=== PATIENT | male | born 1950 | race Caucasian/White ===

== ENCOUNTER → 2023-05-13 | Outpatient (CLI) | payer OTHER | END | disposition home or self-care (01) | LOC: TOM 09:09 | PROVIDERS: ATTEND Urology | DX: N40.1 Benign prostatic hyperplasia with lower urinary tract symptoms (principal); R97.20 Elevated prostate specific antigen [PSA]; R31.0 Gross hematuria ==

== ENCOUNTER 2025-01-30 10:19 | Inpatient (IN) | payer OTHER ==
[~2025-01-30] VITALS: Ht 166.4 cm; Wt 83.5 kg
[2025-01-30] MEDS ORDERED: COZAAR25 MG PO (10:55)
[2025-01-30] MEDS ORDERED: FINASTERIDE5 MG PO (10:55)
[2025-02-05] MEDS ORDERED: BUPIVACAINE HCL 30 ML VIAL IJ ONE (11:30)
[2025-02-05] MEDS ORDERED: LIDOCAINE HCL 1%/EPINEPHRINE 20ML VIAL IJ ONE (11:30)
[2025-02-05] MEDS ORDERED: METRONIDAZOLE/SODIUM CHLORIDE 500 MG/100 ML PIGGYBACK IV SCH ×2 (11:45→17:00)
[2025-02-05] MEDS ORDERED: CEFTRIAXONE SODIUM 2,000 MG VIAL IV SCH (11:45)
[2025-02-05] MEDS ORDERED: DEXTROSE 50 % IN WATER 0.5 G/ML DISP.SYRIN IV PRN ×2 (13:00→19:15)
[2025-02-05] MEDS ORDERED: ONDANSETRON HCL 2 MG/ML VIAL IV PRN (13:00)
[2025-02-05] MEDS ORDERED: OxyCODONE HCL 5 MG TABLET (ROXICODONE) PO PRN (13:00)
[2025-02-05] MEDS ORDERED: HYOSCYAMINE SULFATE 0.125 MG TAB.SUBL SL SCH (13:00)
[2025-02-05] MEDS ORDERED: SUGAMMADEX SODIUM 200 MG/2 ML VIAL IV ONE (13:00)
[2025-02-05] MEDS ORDERED: 0.9 % SODIUM CHLORIDE 1,000 ML IV SCH (13:00)
[2025-02-05] MEDS ORDERED: MORPHINE SULFATE 4 MG/ML CARTRIDGE IV PRN (13:00)
[2025-02-05] MEDS ORDERED: ACETAMINOPHEN 500 MG GEL..CAP PO SCH (14:00)
[2025-02-05] MEDS ORDERED: MORPHINE SULFATE 2 MG/ML CARTRIDGE IV ONE (15:00)
[2025-02-05 16:25] LABS: HEMATOCRIT 37.6 % (39.0-48.0); HEMOGLOBIN 12.5 g/dL (13-16.00); MEAN CELL VOLUME 83.7 fL (80.0-100.00); MEAN CORPUSCULAR HEMOGLOBIN 27.8 pg (27.00-32.0); MEAN CORPUSCULAR HGB CONC 33.3 g/dl (32.0-36.0); PLATELET COUNT 234 K/uL (150-450)
[2025-02-05 16:57] LABS: ALBUMIN 3.8 gm/dL (3.4-5.0); CREATININE SERUM 0.65 mg/dL (0.70-1.30); GFR 119.75; MAGNESIUM 1.8 mg/dL (1.8-2.4); PHOSPHOROUS 3.3 mg/dL (2.5-4.9); POTASSIUM 3.65 mEq/L (3.5-5.1)
[2025-02-05] MEDS ORDERED: POLYETHYLENE GLYCOL 3350 17 GM BLIST.PACK PO SCH (17:00)
[2025-02-05] MEDS ORDERED: GABAPENTIN 300 MG CAPSULE PO SCH (17:00)
[2025-02-05] MEDS ORDERED: MORPHINE SULFATE 4 MG/ML VIAL IV ONE (17:25)
[2025-02-05 18:43] VITALS: BP 171/86; O2SAT 96
[2025-02-05] MEDS ORDERED: ENALAPRILAT DIHYDRATE 1.25 MG/ML VIAL IV PRN (19:15)
[2025-02-05] MEDS ORDERED: INSULIN LISPRO 1,000 UNIT/10 ML UNITS SUBCUTANEO PRN (19:15)
[2025-02-05] MEDS ORDERED: FAMOTIDINE/PF 20 MG/2 ML VIAL IV PUSH SCH (21:00)
[2025-02-05] MEDS ORDERED: CELECOXIB 200 MG CAPSULE PO SCH (21:00)
[2025-02-05] MEDS ORDERED: TAMSULOSIN HCL 0.4 MG CAP PO SCH (21:00)
[2025-02-05 23:46] VITALS: BP 147/73; O2SAT 95
[2025-02-06 06:43] LABS: HEMATOCRIT 36.4 % (39.0-48.0); HEMOGLOBIN 12.3 g/dL (13-16.00); MEAN CELL VOLUME 83.7 fL (80.0-100.00); MEAN CORPUSCULAR HEMOGLOBIN 28.2 pg (27.00-32.0); MEAN CORPUSCULAR HGB CONC 33.7 g/dl (32.0-36.0); PLATELET COUNT 232 K/uL (150-450); RED BLOOD COUNT 4.35 M/uL (4.00-6.00); RED CELL DISTRIBUTION WIDTH 14.9 % (11.5-14.5)
[2025-02-06 07:25] LABS: ALBUMIN 3.3 gm/dL (3.4-5.0); CALCIUM 8.6 mg/dL (8.5-10.1); CREATININE SERUM 0.73 mg/dL (0.70-1.30); GFR 104.74; MAGNESIUM 1.7 mg/dL (1.8-2.4); POTASSIUM 3.93 mEq/L (3.5-5.1)
[2025-02-06 08:01] VITALS: BP 144/81; O2SAT 95
[2025-02-06] MEDS ORDERED: FINASTERIDE 5 MG TABLET PO SCH (09:00)
[2025-02-06] MEDS ORDERED: LOSARTAN POTASSIUM 100 MG TABLET PO SCH (09:00)
[2025-02-06] MEDS ORDERED: MAGNESIUM SULFATE IN WATER 50 ML IV NR (10:00)
[2025-02-06 16:25] VITALS: BP 144/73; O2SAT 96
[2025-02-06] MEDS ORDERED: ROSUVASTATIN CALCIUM 10 MG TABLET PO SCH (17:00)
[2025-02-06] MEDS ORDERED: ENOXAPARIN SODIUM 40 MG/0.4 ML SYRINGE SUBCUTANEO SCH (17:00)
[2025-02-07 00:50] VITALS: BP 156/83; O2SAT 95
[2025-02-07 07:26] LABS: HEMATOCRIT 36.6 % (39.0-48.0); HEMOGLOBIN 12.3 g/dL (13-16.00); MEAN CELL VOLUME 83.5 fL (80.0-100.00); MEAN CORPUSCULAR HEMOGLOBIN 28.1 pg (27.00-32.0); MEAN CORPUSCULAR HGB CONC 33.6 g/dl (32.0-36.0); PLATELET COUNT 210 K/uL (150-450); RED BLOOD COUNT 4.38 M/uL (4.00-6.00); RED CELL DISTRIBUTION WIDTH 15.4 % (11.5-14.5)
[2025-02-07 07:45] LABS: CALCIUM 8.5 mg/dL (8.5-10.1); CREATININE SERUM 0.61 mg/dL (0.70-1.30); GFR 128.86; MAGNESIUM 2.2 mg/dL (1.8-2.4); POTASSIUM 3.68 mEq/L (3.5-5.1)
[2025-02-07 08:02] LABS: PHOSPHOROUS 1.9 mg/dL (2.5-4.9)
[2025-02-07 08:41] VITALS: BP 172/82; O2SAT 98
[2025-02-07] MEDS ORDERED: ENOXAPARIN SODIUM 40 MG/0.4 ML SYRINGE SUBCUTANEO SCH (09:00)
[2025-02-07 11:30] VITALS: BP 177/96; O2SAT 98
[2025-02-07] MEDS ORDERED: POTASSIUM PHOS,M-BASIC-D-BASIC 3 MM/ML VIAL IV ONE (12:00)
[2025-02-07 16:00] VITALS: BP 166/76; O2SAT 96
[2025-02-08 00:54] VITALS: BP 165/80; O2SAT 96
[2025-02-08 09:01] VITALS: BP 167/92; O2SAT 97
[2025-02-08] MEDS ORDERED: HYOSCYAMINE0.125 M1 SL (11:14)
[2025-02-08] MEDS ORDERED: TRAM1TAB98 PO (11:14)
[2025-02-08] MEDS ORDERED: PEPCID AC20 MG PO (11:15)
[2025-02-08 12:00] VITALS: BP 157/93
[2025-02-08 16:24] VITALS: BP 187/91; O2SAT 97
== END 2025-02-08 17:20 | disposition home or self-care (01) | DRG 331 ==
LOC: O/R 02-05 06:10 → SURH 02-05 07:00 → SURG 02-05 14:57
PROVIDERS: Internal Medicine Geriatric Medicine; ADMIT Surgery; ATTEND Surgery
PROC: 07BB4ZZ Excision of Mesenteric Lymphatic, Percutaneous Endoscopic Approach (ICD-10-PCS; 2025-02-05)
PROC: 0DTF4ZZ Resection of Right Large Intestine, Percutaneous Endoscopic Approach (ICD-10-PCS; principal; 2025-02-05 07:00)
DX: D12.2 Benign neoplasm of ascending colon (principal); D37.4 Neoplasm of uncertain behavior of colon; R59.0 Localized enlarged lymph nodes; I11.9 Hypertensive heart disease without heart failure; N40.0 Benign prostatic hyperplasia without lower urinary tract symptoms; E11.9 Type 2 diabetes mellitus without complications; E78.00 Pure hypercholesterolemia, unspecified; D50.0 Iron deficiency anemia secondary to blood loss (chronic); E66.9 Obesity, unspecified